=== PATIENT | female | born 1980 | race Caucasian/White ===

== ENCOUNTER 2020-01-22 20:54 | Emergency (ER) | payer MEDICAID ==
[~2020-01-22] VITALS: Ht 160 cm; Wt 70.0 kg
[~2020-01-22 20:54] MED LIST: IBUP-1223 PO; OXYC-302 PO
[2020-01-22] MEDS ORDERED: NALOXONE 0.4 MG/ML, 1ML ONE (21:00)
--- NOTE | 2020-01-22 21:12 | NUR ---
pt bib remsa with c/o shooting up heroin at 7 pm for the first time, pt states also smoked meth and drank beers today, at bed side
--- NOTE | 2020-01-22 21:20 | NUR ---
pt placed on all monitors and etco2 at this time
[2020-01-22] MEDS ORDERED: SODIUM CHLORIDE 0.9% 1,000ML IVBOLUS ONE (21:30)
[2020-01-22 21:53] LABS: BASOPHILS % (AUTO) 0 % (0-1); EOSINOPHILS # (AUTO) 0.01 x10^3/uL (0-0.4); EOSINOPHILS % (AUTO) 0 % (1-7); LYMPHOCYTES # (AUTO) 0.92 x10^3/uL (1-3.4); LYMPHOCYTES % (AUTO) 10 % (22-44); MD NO; MEAN CORPUSCULAR HEMOGLOBIN 31.1 pg (27.0-34.8); MEAN PLATELET VOLUME 8.3 fL (7.4-10.4); MONOCYTES # (AUTO) 0.15 x10^3/uL (0.2-0.8); MONOCYTES % (AUTO) 2 % (2-9); NEUTROPHILS # (AUTO) 7.81 x10^3/uL (1.8-6.8); NEUTROPHILS % (AUTO) 88 % (42-75); PLATELET COUNT 275 x10^3/uL (130-400); RED BLOOD COUNT 4.29 x10^6/uL (3.82-5.3); RED CELL DISTRIBUTION WIDTH 13.4 % (9.6-15.2)
[2020-01-22 22:06] LABS: ALBUMIN 3.1 g/dL (3.4-5.0); ANION GAP 7 mmol/L (5-15); CALCIUM 7.6 mg/dL (8.5-10.1); CHLORIDE 109 mmol/L (98-107)
[2020-01-22 22:12] LABS: ALANINE AMINOTRANSFERASE 21 U/L (12-78); ALKALINE PHOSPHATASE 99 U/L (45-117); BILIRUBIN,TOTAL 0.2 mg/dL (0.2-1.0); CREATININE 0.58 mg/dL (0.55-1.02); TOTAL PROTEIN 6.7 g/dL (6.4-8.2)
[2020-01-22 22:16] LABS: SALICYLATE LEVEL < 1.7 mg/dL (2.8-20.0)
--- NOTE | 2020-01-22 22:18 | NUR ---
PT AWAKENS EASILY IN NAD, REPORT TO FL[facility]
--- NOTE | 2020-01-23 00:10 | NUR ---
REPORT FROM MERCED CRENSHAW. PT AWAKE TO VERBAL STIMULI. PUPILS PINPOINT.
--- NOTE | 2020-01-23 00:26 | NUR ---
UPON TAKING OVER CARE FOR THIS PT, FLUIDS INTIATED AND L EJ IV INFULTRATED. THIS LINE D/C'D WORKING TO OBTAIN IV ACCESS.
--- NOTE | 2020-01-23 01:02 | NUR ---
PT UNABLE TO URINATE AT THIS TIME. STILL RECEIVING FLUIDS. PT IN VIEW OF THE SITTER.
--- NOTE | 2020-01-23 02:45 | NUR ---
ERP BACK TO BEDSIDE. PT STATES SHE DOES NOT REMEMBER TALKING TO HIM EARLIER. PT IS AROUSABLE TO NAME. SHE IS STILL UNABLE TO URINATE. SHE IS MAINTAINING HER O2 SATS ON 1L NC, BUT COUGHED WHEN ATTEMPTED TO DRINK WATER. WILL CONTINUE TO MONITOR. Addendum: 01/23/20 at 0252 by JOHNTLE ERP BACK TO BEDSIDE. PT STATES SHE DOES NOT REMEMBER TALKING TO HIM EARLIER. PT IS AROUSABLE TO NAME. PT STATES SHE IS STILL UNABLE TO URINATE, ERP MADE AWARE. SHE IS MAINTAINING HER O2 SATS ON 1L NC, BUT COUGHED WHEN ATTEMPTED TO DRINK WATER. WILL CONTINUE TO MONITOR.
--- NOTE | 2020-01-23 04:50 | NUR ---
PT AWAKE ENOUGH TO MOVE SELF FROM [facility] TO [facility]OSPITAL BED. PT THREW UP 15MLS FROM MOVING, DENIED MEDS FOR THIS. PT GIVEN A SIP OF WATER WHICH SHE WAS ABLE TO DRINK WITHOUT COUGHING AND ICE CHIPS. PT THEN FELL BACK ASLEEP WHILE STILL SITTING UP. PT TOLD TO LAY DOWN TO SLEEP. PT RESTING IN BED AGAIN.
--- NOTE | 2020-01-23 05:19 | NUR ---
PT ABLE TO URINATE USING BED TRAN.
[2020-01-23 05:38] LABS: AMPHETAMINE SCREEN, URINE Positive (Negative); BARBITURATE SCREEN, URINE Negative (Negative); BENZODIAZEPINE SCREEN, URINE Negative (Negative); CANNABINOID SCREEN, URINE Negative (Negative); METHADONE SCREEN, URINE Negative (Negative); OPIATE SCREEN, URINE Positive (Negative)
[2020-01-23 05:39] LABS: COCAINE SCREEN, URINE Negative (Negative)
--- NOTE | 2020-01-23 06:17 | NUR ---
LIZETH RN: PACKET FAXED TO [facility], [place] [facility] [address]
--- NOTE | 2020-01-23 06:39 | NUR ---
PT PLACED ON LEGAL HOLD FOR SUICIDAL BEHAVIOR. PT HAS STATED MORE THAN ONCE "I DON'T DO HEROIN." STATES SHE WANTED TO GO TO SLEEP AND NOT WAKE UP WHICH IS WHY SHE TRIED HEROIN IN THIS INSTANCE. WHEN ASKED IF SHE IS STILL HAVING THOUGTS OF WANTING TO HARM HERSELF SHE RESPONDS "NOT RIGHT AT THIS MOMENT."
--- NOTE | 2020-01-23 07:03 | NUR ---
BEDSIDE REPORT GIVEN TO MERCED SINGH.
--- NOTE | 2020-01-23 08:10 | NUR ---
PT STATES THAT SHE HAS SUICIDAL THOUGHTS RECENTLY. STATES SHE DOES NOT USE HEROIN BUT DID LAST NIGHT IN ATTEMPT TO KILL HERSELF. PT MENTIONED HER DAUGHTER IS 20 YEARS OLD AND WILL NOT TALK TO HER. PT VOMITING AT THIS TIME. TO SPEAK WITH MD REGARDING MEDICATION FOR SAME.
[2020-01-23] MEDS ORDERED: ONDANSETRON 2MG/ML, 2ML ONE (08:18)
[2020-01-23] MEDS ORDERED: ONDANSETRON 2MG/ML, 2ML IVPush ONE (08:30)
[2020-01-23 11:09] VITALS: BP 106/65
--- NOTE | 2020-01-23 11:09 | NUR ---
PT STATES SHE WAS ABLE TO EAT FRUIT SLOWLY AND NOW PROVIDED WATER AND JUICE
--- NOTE | 2020-01-23 11:15 | NUR ---
REPORT TO ETHAN RN AND PT TO BE TRANSPORTED TO FLOOR
== END 2020-01-23 11:47 | disposition other institution (70) ==
LOC: ED 23:16 → MERGE 23:16 → ED 01-23 11:47
DX: T40.1X1A Poisoning by heroin, accidental (unintentional), initial encounter (principal); R45.851 Suicidal ideations; F17.210 Nicotine dependence, cigarettes, uncomplicated; Y92.9 Unspecified place or not applicable
CPT/HCPCS: 36415; 80053; 80307; 84703; 85025; 96361; 96374; 99285; 99406; J2405; J7030

== ENCOUNTER 2020-01-23 10:22 | Inpatient (IN) | payer MEDICAID ==
[~2020-01-23] VITALS: Ht 160 cm; Wt 68.1 kg
[2020-01-23] MEDS ORDERED: DOCUSATE 100 MG CAPSULE PO PRN (11:00)
[2020-01-23] MEDS ORDERED: POLYETHYLENE GLYCOL 17 GM PACKET PO PRN (11:00)
[2020-01-23] MEDS ORDERED: BISACODYL 10 MG SUPP PR PRN (11:00)
[2020-01-23] MEDS ORDERED: ONDANSETRON ODT 4 MG ONE (11:36)
[2020-01-23] MEDS: ONDANSETRON ODT 4 MG PO PRN ×2 (11:42→20:47)
[2020-01-23 11:52] VITALS: BP 107/70
[2020-01-23] MEDS ORDERED: PROMETHAZINE 25 MG/ML, 1ML IM ONE (12:30)
[2020-01-23] MEDS: NICOTINE 14MG/24 HR PATCH.TD24 TD SCH (13:30)
[2020-01-23] MEDS: HYDROXYZINE PAMOATE 50MG CAP PO PRN ×2 (14:04→20:47)
[2020-01-23] MEDS: ESCITALOPRAM 10MG TABLET PO SCH (14:08)
[2020-01-23 19:56] VITALS: BP 104/71
[2020-01-23] MEDS: ACETAMINOPHEN 325 MG TABLET PO PRN (20:47)
[2020-01-24 06:30] LABS: CHOL/HDL RATIO 1.9; CHOLESTEROL, TOTAL 102 mg/dL (140-239); FREE T4 (FREE THYROXINE) 1.06 ng/dL (0.76-1.46); HDL CHOL % 54 % (28-40); HDL CHOLESTEROL (DIRECT) 55 mg/dL (40-60); LDL CHOLESTEROL,CALCULATED 35 mg/dL (54-169); LDL/HDL RATIO 0.6 (0.5-3.0); TRIGLYCERIDES 58 mg/dL (50-200); VLDL CHOLESTEROL 12 mg/dL (0-25)
[2020-01-24 06:57] VITALS: BP 97/62
[2020-01-24] MEDS: ESCITALOPRAM 10MG TABLET PO SCH (08:54)
[2020-01-24] MEDS: METHOCARBAMOL 500 MG TABLET PO PRN ×2 (08:59→20:21)
[2020-01-24 09:31] LABS: ALBUMIN 2.7 g/dL (3.4-5.0); ANION GAP 5 mmol/L (5-15); CALCIUM 8.6 mg/dL (8.5-10.1); CHLORIDE 106 mmol/L (98-107); CREATININE 0.71 mg/dL (0.55-1.02)
[2020-01-24 10:12] LABS: BASOPHILS # (AUTO) 0.01 x10^3/uL (0-0.1); BASOPHILS % (AUTO) 0 % (0-1); EOSINOPHILS # (AUTO) 0.16 x10^3/uL (0-0.4); EOSINOPHILS % (AUTO) 2 % (1-7); LYMPHOCYTES # (AUTO) 0.96 x10^3/uL (1-3.4); LYMPHOCYTES % (AUTO) 10 % (22-44); MD NO; MEAN CORPUSCULAR HEMOGLOBIN 30.6 pg (27.0-34.8); MEAN CORPUSCULAR HGB CONC 32.6 g/dL (32.4-35.8); MEAN CORPUSCULAR VOLUME 93.8 fL (80-100); MEAN PLATELET VOLUME 7.9 fL (7.4-10.4); MONOCYTES # (AUTO) 0.42 x10^3/uL (0.2-0.8); MONOCYTES % (AUTO) 5 % (2-9); NEUTROPHILS # (AUTO) 7.78 x10^3/uL (1.8-6.8); NEUTROPHILS % (AUTO) 84 % (42-75); PLATELET COUNT 232 x10^3/uL (130-400); RED BLOOD COUNT 3.92 x10^6/uL (3.82-5.3); RED CELL DISTRIBUTION WIDTH 13.1 % (9.6-15.2)
[2020-01-24] MEDS: POTASSIUM CHLORIDE 20 MEQ TAB.ER.PRT PO SCH (12:00)
[2020-01-24] MEDS: K-PHOS NEUTRAL 250MG TAB PO SCH ×2 (12:00→20:21)
[2020-01-24] MEDS: NICOTINE 14MG/24 HR PATCH.TD24 TD SCH (12:02)
[2020-01-24 19:50] VITALS: BP 107/73
[2020-01-25 07:00] VITALS: BP 104/70
[2020-01-25] MEDS: ESCITALOPRAM 10MG TABLET PO SCH (08:26)
[2020-01-25] MEDS: POTASSIUM CHLORIDE 20 MEQ TAB.ER.PRT PO SCH (08:26)
[2020-01-25] MEDS: K-PHOS NEUTRAL 250MG TAB PO SCH ×2 (08:26→20:05)
[2020-01-25 13:17] LABS: MICROSCOPIC INDICATED
[2020-01-25] MEDS: NICOTINE 14MG/24 HR PATCH.TD24 TD SCH (13:30)
[2020-01-25] MEDS ORDERED: HYDR50CA2 PO (14:32)
[2020-01-25] MEDS ORDERED: POTA20TA6 PO (14:32)
[2020-01-25] MEDS ORDERED: ESCI10TA PO (14:32)
[2020-01-25] MEDS ORDERED: NICO-486 TD (14:32)
[2020-01-25 19:46] VITALS: BP 117/78
[2020-01-26 07:38] VITALS: BP 118/77
[2020-01-26] MEDS: POTASSIUM CHLORIDE 20 MEQ TAB.ER.PRT PO SCH ×2 (08:37→08:45)
[2020-01-26] MEDS: ACETAMINOPHEN 325 MG TABLET PO PRN (08:37)
[2020-01-26] MEDS: ESCITALOPRAM 10MG TABLET PO SCH (08:37)
[2020-01-26] MEDS: HYDROXYZINE PAMOATE 50MG CAP PO PRN (08:37)
== END 2020-01-26 10:30 | disposition home or self-care (01) | DRG 885 ==
LOC: 3E 11:28
PROVIDERS: ADMIT Psychiatry & Neurology Psychosomatic Medicine; ATTEND Psychiatry & Neurology Psychosomatic Medicine
DX: F33.2 Major depressive disorder, recurrent severe without psychotic features (principal); E46 Unspecified protein-calorie malnutrition; F15.20 Other stimulant dependence, uncomplicated; R45.851 Suicidal ideations; E83.39 Other disorders of phosphorus metabolism; E87.6 Hypokalemia; R73.9 Hyperglycemia, unspecified; F11.90 Opioid use, unspecified, uncomplicated; F41.9 Anxiety disorder, unspecified; Z68.26 Body mass index [BMI] 26.0-26.9, adult; Z72.0 Tobacco use
CPT/HCPCS: 36415; 71045; 80061; 80069; 81001; 83735; 84439; 84443; 84702; 85025; 87086; 93005; Q0162

== ENCOUNTER 2020-02-08 17:30 | Emergency (ER) | payer MEDICAID ==
[~2020-02-08 17:30] MED LIST changes: +ESCI10TA PO; +HYDR50CA2 PO; +NICO-486 TD; +POTA20TA6 PO
--- NOTE | 2020-02-08 19:09 | NUR ---
ADULT DAYCARE COORDINATOR: PT. TO ROOM FROM LOBBY AT THIS TIME.
--- NOTE | 2020-02-08 19:26 | NUR ---
First contact with patient: patient presents to ER c/o left leg bruising and swelling just above the knee on the medial side. Patient denies trauma. States she twisted her leg and heard a pop and it immediately bruised. Patient is able to bear weight but has difficulty walking. Patient is in NAD. Respirations even and unlabored.
[2020-02-08 19:34] VITALS: BP 113/63
[2020-02-08] MEDS ORDERED: IBUPROFEN 600 MG TABLET PO ONE (20:00)
[2020-02-08] MEDS ORDERED: IBUPROFEN 600 MG TABLET ONE (20:02)
--- NOTE | 2020-02-08 20:03 | NUR ---
Scotty rn: Pt refused roxanne wrap "can i just get the roxanne wrap and wrap it at home?" Pt given bandage and instructed on proper application. Given crutches and taught w/ demonstration from pt.
== END 2020-02-08 20:16 | disposition home or self-care (01) ==
LOC: ED 20:10
DX: S83.92XA Sprain of unspecified site of left knee, initial encounter (principal); F17.200 Nicotine dependence, unspecified, uncomplicated; X58.XXXA Exposure to other specified factors, initial encounter; Y93.01 Activity, walking, marching and hiking; Y92.69 Other specified industrial and construction area as the place of occurrence of the external cause; Y99.0 Civilian activity done for income or pay
CPT/HCPCS: 99283

== ENCOUNTER 2020-05-01 19:02 | Emergency (ER) | payer MEDICAID ==
[~2020-05-01] VITALS: Ht 160 cm; Wt 70.6 kg
[2020-05-01 19:12] VITALS: BP 123/80
--- NOTE | 2020-05-01 20:53 | NUR ---
COAL CHUTE WORKER; D/c instructions given. All questions and concerns addressed. Patient ambulatory with a steady gait. Belongings with patient.
== END 2020-05-01 20:55 | disposition home or self-care (01) ==
LOC: ED 19:32
DX: J02.9 Acute pharyngitis, unspecified (principal); M79.10 Myalgia, unspecified site; R51.9 Headache, unspecified; R05 Cough
CPT/HCPCS: 87635; 99281; 99283

== ENCOUNTER 2020-12-17 16:44 | Emergency (ER) | payer MEDICAID ==
[~2020-12-17] VITALS: Ht 157.5 cm; Wt 65.0 kg
[~2020-12-17 16:44] MED LIST changes: -ESCI10TA PO; +ESCI10TA97 PO; -OXYC-302 PO; +OXYC1TAB14 PO
--- NOTE | 2020-12-17 16:50 | NUR ---
NIL x1 when called to triage.
[2020-12-17 16:56] VITALS: BP 117/74
[2020-12-17] MEDS ORDERED: LIDOCAINE-MPF 1%, 5ML INFIL ONE (17:30)
--- NOTE | 2020-12-17 18:13 | NUR ---
Patient given discharge instructions and RX, they have confirmed that they understand the instructions. Patient ambulatory with steady gait.
== END 2020-12-17 18:15 | disposition home or self-care (01) ==
LOC: ED 17:14
DX: L03.012 Cellulitis of left finger (principal); M79.642 Pain in left hand; F17.200 Nicotine dependence, unspecified, uncomplicated
CPT/HCPCS: 10060